=== PATIENT | female | born 1980 | race Caucasian/White ===

== ENCOUNTER 2018-09-16 12:45 | Inpatient (IN) ==
--- NOTE | 2018-09-16 14:55 | Emergency Department Note ---
Disposition Clinical Impression: Acute psychosis Disposition: Admitted As Inpatient Condition: Fair Referrals: NONE,PCP [Primary Care Provider] - Time of Disposition: 15:00 Psych HPI - General Stated Complaint: psych Time Seen by Provider: 09/16/18 12:47 Source: patient, EMS Mode of arrival: ambulatory Limitations: no limitations Nursing Notes Reviewed: Yes Vital Signs Reviewed: Yes - History of Present Illness HPI Narrative: 38-year-old female brought to the emergency department from outside facility for psychiatric evaluation. Patient was at a family function when she started to become very agitated. The police were called. Patient threatened the police and then the emergency department staff at the outside facility. She was restrained at the facility. She is medically cleared and sent to [facility] for behavior health evaluation. Patient has obvious paranoid delusions during the initial evaluation. She believes that there are cameras in the ceilings - Related Data Home Medications Medication Instructions Recorded Confirmed Desipramine [Norpramine] 25 mg PO HS 09/16/18 09/16/18 OXcarbazepine [Oxcarbazepine] 300 mg PO BID 09/16/18 09/16/18 Sertraline [Zoloft] 25 mg PO DAILY 09/16/18 09/16/18 Venlafaxine HCl [Effexor Xr] 75 mg PO BID 09/16/18 09/16/18 Allergies Allergy/AdvReac Type Severity Reaction Status Date / Time Penicillins Allergy Hives Verified 09/12/15 11:16 prednisone Allergy Anaphylaxis Verified 09/12/15 11:16 steroids Allergy Swelling Uncoded 08/09/17 11:07 of Lip/Tongue/Throat All systems ED: reviewed and negative except as stated. Review of Systems: As Per HPI Past Medical History - Past Medical History Attestation: Yes The following information was validated with the patient. Medical history: Reports: hepatitis Surgical history: Reports: Psychiatric history: Reports: previous psychiatric hospitalization, anxiety, depression - Social History Smoking Status: Current every day smoker Smokeless Tobacco Status: No Alcohol use: Reports: unknown Drug use: Reports: opiates, marijuana Physical Exam General: Alert and in no acute distress, anxious Skin: Warm, dry, intact Head: Normocephalic and atraumatic Neck: Supple, trachea midline and no tenderness Cardiovascular: RRR, no murmur, normal perfusion Respiratory: CTAB, no wheezing, cough, or respiratory distress Musculoskeletal: Normal strength, no tenderness, swelling or deformity GI: Soft, nontender, nondistended. Bowel sounds present Neuro: A&O to person, place, time and situation. No focal deficits noted on exam - General General appearance: other Course Vital Signs Temperature 98.2 F 09/16/18 12:56 Pulse Rate 76 09/16/18 12:56 Respiratory Rate 18 09/16/18 12:56 Blood Pressure 123/83 09/16/18 12:56 O2 Sat by Pulse Oximetry 100 09/16/18 12:56 Temperature 98.2 F 09/16/18 12:56 Pulse Rate 76 09/16/18 12:56 Respiratory Rate 18 09/16/18 12:56 Blood Pressure 123/83 09/16/18 12:56 O2 Sat by Pulse Oximetry 100 09/16/18 12:56 Oxygen Delivery Oxygen Delivery Room Air Psych - MDM Narrative Medical decision making narrative: Pt evaluated by who recommended admission to the hospital for further care. Pt pink slipped in ED. Psychiatric Medical Clearance - Medical Clearance Checklist Medical History: (This Medical Record has been edited. Action required.) No Social History Section defined Current Vitals: Last Vital Signs Temp 98.2 F 09/16/18 12:56 Pulse 76 09/16/18 12:56 Resp 18 09/16/18 12:56 BP 123/83 09/16/18 12:56 Pulse Ox 100 09/16/18 12:56 Statement of Medical Clearance: I have evaluated the patient, reviewed diagnostic information, and certify that the patient's medical condition is sufficiently stable that transfer to the psychiatric unit does not pose a significant risk of deterioration.
[2018-09-16] MEDS ORDERED: *HR* LORazepam 1 MG TABLET PO ONE (15:08)
[2018-09-16] MEDS ORDERED: *HR* LORazepam 2 MG/ML VIAL IM STA (16:09)
[2018-09-16] MEDS ORDERED: MOM Conc 10 ML UD.LIQ PO PRN (17:09)
[2018-09-16] MEDS ORDERED: Mag Hydrox/Al Hydrox/Simeth 30 ML UDC PO PRN (17:09)
[2018-09-16] MEDS ORDERED: hydrOXYzine pamoate 25 MG CAPSULE PO PRN (17:09)
[2018-09-16] MEDS ORDERED: traZODone 50 MG TABLET PO PRN (17:09)
[2018-09-16] MEDS ORDERED: Acetaminophen 325 MG TABLET PO PRN (17:09)
[2018-09-16] MEDS ORDERED: *HR* LORazepam 1 MG TABLET PO PRN (17:09)
[2018-09-16] MEDS ORDERED: Haloperidol Lactate 5 MG/ML VIAL IM PRN (17:09)
[2018-09-16] MEDS ORDERED: *HR* LORazepam 2 MG/ML VIAL IM PRN (17:09)
[2018-09-16] MEDS ORDERED: OLANZapine 5 MG TAB.RAPDIS PO ONE (21:00)
--- NOTE | 2018-09-18 09:29 | Psychiatry Progress Note ---
Date of Encounter: 09/18/18 Time of Encounter: 09:25 Subjective Interval history: Client less agitated today. Still has an irritable edge but able to tolerate talking. Answers questions minimally but thoughts appear organized. Continues to deny SI/HI/AH/VH. Reports she is sleeping and eating well. Minimal interaction with staff and peers. Mostly keeps to herself. Admits to depression and looks depressed. Previously took Zoloft, Effexor, and Trileptal. Did not like the Trileptal. Interested in restarting Zoloft so will order that today. Still wants to return to [facility] for A[facility]. Continues to say she is an alcoholic and denies drug use. However, when told she had methamphetamines in her tox screen she responds with "imagine that." BAL negative at time of presentation to the ER. Does not want to sign in to the hospital and likely not probatable at this point. Will work on attempting to get her to a residential treatment center today. Review of Systems Constitutional: Denies: fever, chills, weakness, weight change Eyes: Denies: eye pain, vision change Ears, Nose, Throat: Denies: ear pain, throat pain, dental pain, hearing loss, congestion Cardiovascular: Denies: chest pain, palpitations, dyspnea on exertion Respiratory: Denies: cough, dyspnea, wheezes Gastrointestinal: Denies: abdominal pain, nausea, vomiting, diarrhea, constipation Musculoskeletal: Denies: joint swelling, joint pain Neurological: Denies: headache, weakness, numbness, memory loss Results - Vital Signs Vital Signs: Temp Pulse Resp BP Pulse Ox 98 F 66 18 114/81 98 09/18/18 09:00 09/18/18 09:00 09/18/18 09:00 09/18/18 09:21 09/18/18 09:00 Assessment and Plan (1) Substance-induced psychotic disorder Current visit: No Status: Acute Plan: Continue hospitalization, Close observation, Suicide Precautions per unit protocol, Encourage participation in unit milieu, Group Therapy, Monitor sleep, Monitor appetite Risks, benefits, side effects, alternatives discussed w/pt: Yes Patient agreeable to treatment: Yes Consult Discharge Plan - Plan Referrals: NONE,PCP [Primary Care Provider] - Psychiatry Exam - Constitutional Vitals: Temp Pulse Resp BP Pulse Ox 98 F 66 18 114/81 98 09/18/18 09:00 09/18/18 09:00 09/18/18 09:00 09/18/18 09:21 09/18/18 09:00 General appearance: age & developmentally appropriate, well-groomed, well- nourished - Musculoskeletal Gait: normal Station: relaxed Strength & Tone: normal for patient - Psychiatric Patient Orientation: Yes Person, Yes Time, Yes Place Level of alertness: Alert Behavior: guarded Psychomotor activity: Normal Eye Contact: Maintains Eye Contact Mood Description: Depressed Affect description: congruent with mood Speech Volume: Normal Speech pattern: normal rate, normal rhythm, normal tone, fluent, spontaneous Language & Vocabulary: consistent with education Thought Process: Linear Thought Content: No Suicidal ideation, No Homicidal ideation, No Overt delusions Perceptual Disturbances: No Auditory hallucinations, No Visual hallucinations Attention Span Ability: Capable of Focused Attention Memory Description: Grossly Intact Patient Reliability: Questionable Historian Fund of knowledge: Yes abstraction ability, Yes aware of current events Intelligence Estimate: Average Judgment: Poor Insight: Minimal
--- NOTE | 2018-09-19 10:55 | Psychiatry Progress Note ---
Date of Encounter: 09/19/18 Time of Encounter: 10:53 Subjective Interval history: Patient reports she is doing better. She denies auditory or visual hallucinations. She is tolerating the Zoloft. No suicidal or homicidal thoughts. Review of Systems Constitutional: Denies: fever Eyes: Denies: eye pain Ears, Nose, Throat: Denies: ear pain Cardiovascular: Denies: chest pain Psychiatric: Reports: depression. Denies: suicidal ideation, change in appetite, homicidal ideation, auditory hallucinations, visual hallucinations Results - Vital Signs Vital Signs: Temp Pulse Resp BP Pulse Ox 98.5 F 97 18 105/74 98 09/19/18 08:36 09/19/18 08:36 09/19/18 08:36 09/19/18 08:36 09/19/18 08:36 Assessment and Plan (1) Substance-induced psychotic disorder Current visit: No Status: Acute Plan: Continue hospitalization, Close observation, Suicide Precautions per unit protocol, Encourage participation in unit milieu, Group Therapy, Monitor sleep, Monitor appetite Additional Plan: Patient is doing better. Still refusing antipsychotic. Tolerating Zoloft. Likely discharge tomorrow. Risks, benefits, side effects, alternatives discussed w/pt: Yes Patient agreeable to treatment: Yes Consult Discharge Plan - Plan Referrals: NONE,PCP [Primary Care Provider] - Psychiatry Exam - Constitutional Vitals: Temp Pulse Resp BP Pulse Ox 98.5 F 97 18 105/74 98 09/19/18 08:36 09/19/18 08:36 09/19/18 08:36 09/19/18 08:36 09/19/18 08:36 General appearance: age & developmentally appropriate, well-groomed, well- nourished - Musculoskeletal Gait: normal Station: relaxed Strength & Tone: normal for patient - Psychiatric Patient Orientation: Yes Person, Yes Time, Yes Place Level of alertness: Alert Behavior: calm, cooperative Psychomotor activity: Normal Eye Contact: Maintains Eye Contact Mood Description: Euthymic/stable Patient description of mood: better Affect description: congruent with mood, blunted Speech Volume: Normal Speech pattern: normal rate, normal rhythm, normal tone, fluent, spontaneous Language & Vocabulary: consistent with education Thought Process: Linear, Goal Oriented Thought Content: No Suicidal ideation, No Homicidal ideation, No Overt delusions Perceptual Disturbances: No Auditory hallucinations, No Visual hallucinations Attention Span Ability: Capable of Focused Attention Memory Description: Grossly Intact Patient Reliability: Reliable Historian Fund of knowledge: Yes abstraction ability, Yes aware of current events Intelligence Estimate: Average Judgment: Fair Insight: Partial
[2018-09-20 09:30] VITALS: BP 123/74
--- NOTE | 2018-09-20 11:10 | Discharge Summary ---
Date of Encounter: 09/20/18 Time of Encounter: 09:30 Diagnosis - Discharge Diagnosis (1) Substance-induced psychotic disorder Status: Acute Medications - Discharge Medications Prescriptions: hydrOXYzine pamoate [HydrOXYzine Pamoate] 25 mg PO TID PRN #30 capsule PRN Reason: Anxiety traZODone [TraZODone] 50 mg PO HS PRN #15 tablet PRN Reason: Insomnia Sertraline [Zoloft] 50 mg PO DAILY #15 tablet Cyanocobalamin (Vitamin B-12) [Vitamin B12] 1,000 mcg PO DAILY 09/17/18 [History] Non-Formulary Medication 0 each PO DAILY 09/17/18 [History] Sertraline [Zoloft] 50 mg PO DAILY #15 tablet 09/20/18 [Rx] hydrOXYzine pamoate [HydrOXYzine Pamoate] 25 mg PO TID PRN #30 capsule 09/20/18 [Rx] traZODone [TraZODone] 50 mg PO HS PRN #15 tablet 09/20/18 [Rx] Allergy/AdvReac Type Severity Reaction Status Date / Time Penicillins Allergy Hives Verified 09/17/18 13:40 prednisone Allergy Anaphylaxis Verified 09/17/18 13:40 steroids Allergy Swelling Uncoded 09/17/18 13:40 of Lip/Tongue/Throat Provider Date of admission: 09/16/18 16:56 Primary care physician: PCP NONE Discharging clinician: Lety Crump Psychiatry Exam - Constitutional Vitals: Temp Pulse Resp BP Pulse Ox 99.3 F 99 20 123/74 98 09/20/18 09:00 09/20/18 09:00 09/20/18 09:00 09/20/18 09:00 09/20/18 09:00 General appearance: age & developmentally appropriate, well-groomed, well- nourished - Musculoskeletal Gait: normal Station: relaxed Strength & Tone: normal for patient - Psychiatric Patient Orientation: Yes Person, Yes Time, Yes Place Level of alertness: Alert Behavior: calm, cooperative Psychomotor activity: Normal Eye Contact: Maintains Eye Contact Mood Description: Euthymic/stable Patient description of mood: Good Affect description: congruent with mood, full range Speech Volume: Normal Speech pattern: normal rate, normal rhythm, normal tone, fluent, spontaneous Language & Vocabulary: consistent with education Thought Process: Linear, Goal Oriented Thought Content: No Suicidal ideation, No Homicidal ideation, No Overt delusions Perceptual Disturbances: No Auditory hallucinations, No Visual hallucinations Attention Span Ability: Capable of Focused Attention Memory Description: Grossly Intact Patient Reliability: Reliable Historian Fund of knowledge: Yes abstraction ability, Yes aware of current events Intelligence Estimate: Average Judgment: Good Insight: Full Hospital Course Hospital course: Ms. Dior is a 38 year old female who was admitted for substance-induced psychosis. She was offered different antipsychotic options and discussed the relative risks and benefits of this and she declined this medication and had capacity to make this decision. She did use Zoloft for some depression as well as Vistaril for anxiety and trazodone for insomnia. Patient was educated of diagnosis and the risk-benefit side effects of this alternative treatment options and was monitored for responsiveness and side effects. Mood anxiety sleep and appetite interest improved as did future orientation. Self-harm thoughts subsided, thinking cleared, psychosis resolved, and mood stabilized. Patient was able to attend both individual and group therapy sessions as well as meet with the psychiatrist daily and urged to discuss any medication or treatment issues or other concerns. The patient was educated primarily by verbal means about their diagnosis and manifestations in their life. The option for treatment including group and individual therapy programming was offered to the patient in addition to the use of medications with all their potential risks, benefits, and side effects as well as the risks of not taking medication and non-adhereance were discussed with the patient at length. The patient was given the opportunity to ask questions and was noted to participate in the treatment in the planning process. The patient felt ready and eager to be discharged from the inpatient psychiatric unit to continue on with treatment as an outpatient. The patient agreed that is they were safe for this disposition. The patient was considered to be able to participate in informed consent and decision making with respect to medical, legal, and financial issues of the time of discharge. At the time of discharge the patient adamantly denied any concerns for lethality including suicidal or homicidal thoughts ideations or plans and was future oriented toward ongoing mental health care, medical follow- up and sobriety. Time spent discussing smoking cessation with patient: 3 to 10 minutes Does patient wish to continue nicotine replacement upon disc: No - Time Spent with Patient Total time spent providing and/or coordinating discharge services: 25 Less than 30 minutes Specific discharge activities: Interval history reviewed. Available labs reviewed . Psychotherapy provided. Patient had an opportunity to ask questions and address concerns. Patient was in agreement with the treatment plan. The risks benefits and side effects of medications were discussed with the patient, including alternatives and treatment. The patient was educated on the abstaining from any alcohol or illicit substances, following up with all scheduled appointments, and taking all medications as prescribed. The patient was educated on 90 meetings in 90 days and to find a sponsor. Assessment and Plan - Patient/Caregiver Discharge Instructions Activity: resume usual activities as tolerated Diet: regular diet Additional Instructions: Continue current medications. Follow up with outpatient mental health. Encourage continued therapy in a group or individual setting. The patient was discharged to home. - Follow up Plan Follow up with: NONE,PCP [Primary Care Provider] - Overall status at discharge: Stable Disposition: Home, Self-Care Quality - Multiple Antipsychotics Patient discharged on 2 or more antipsychotic medications: No Procedures - Procedures Procedures: Medication Management, Crisis Stabilization, Supportive Therapy, Group Therapy, Psychoeducational Therapy
== END 2018-09-20 12:10 | disposition home or self-care (01) | DRG 897 ==
LOC: EMEROOARM 12:45 → 1ANU 16:40 → EMEROOARM 16:48 → 1ANU 16:56 → SUATTDRO 16:56
PROVIDERS: ADMIT Psychiatry & Neurology Psychiatry; ATTEND Psychiatry & Neurology Psychiatry